=== PATIENT | female | born 1940 | race Caucasian/White ===

== ENCOUNTER 2020-08-23 10:58 | Emergency (ER) | payer OTHER ==
[~2020-08-23] VITALS: Ht 167.6 cm; Wt 64.9 kg
[~2020-08-23 10:58] MED LIST: ACID REDUCER 1150 MG PO; BISA5EC PO; Cyclobenzaprine5 MG PO; ENOX40I SC; HYDMOR2 PO; IBUP400 PO; IBUP600 PO; ONDA4ODT SL; PANT40 PO; Stool Softener100 MG PO; TRAM50 PO
[2020-08-23] MEDS ORDERED: ACET325 (11:24)
[2020-08-23 11:32] LABS: BASOPHILS ABSOLUTE AUTO 0.02 K/mm3 (0.00-0.23); BASOPHILS PERCENT AUTO 0 % (0-2); EOSINOPHILS ABSOLUTE AUTO 0.04 K/mm3 (0.00-0.68); EOSINOPHILS PERCENT AUTO 1 % (0-6); Hematocrit 39.5 % (33.0-51.0); Hemoglobin 12.3 g/dL (11.5-16.0); IMMATURE GRAN ABSOLUTE AUTO 0.02 K/mm3 (0.00-0.10); IMMATURE GRAN PERCENT AUTO 0 % (0-1); LYMPHOCYTES ABSOLUTE AUTO 1.79 K/mm3 (0.84-5.20); LYMPHOCYTES PERCENT AUTO 27 % (21-46); MONOCYTES ABSOLUTE AUTO 0.47 K/mm3 (0.16-1.47); MONOCYTES PERCENT AUTO 7 % (4-13); Mean Corpuscular HGB 30.2 pg (26.0-34.0); Mean Corpuscular HGB Conc 31.1 g/dL (31.5-36.5); Mean Corpuscular Volume 97 fL (80-100); Mean Platelet Volume 9.3 fL (9.1-12.4); NEUTROPHILS ABSOLUTE AUTO 4.33 K/mm3 (1.96-9.15); NEUTROPHILS PERCENT AUTO 65 % (41-73); Platelet Count 247 K/mm3 (150-400); RDW Coefficient Variation 12.4 % (11.7-14.2); RDW Standard Deviation 44.2 fL (35.1-46.3); Red Blood Cell Count 4.07 M/mm3 (3.80-5.20); White Blood Cell Count 6.67 K/mm3 (4.00-11.30)
[2020-08-23 11:47] LABS: Alanine Aminotransfer (ALT/SGP 14 U/L (12-78); Albumin, Blood 3.3 g/dL (3.4-5.0); Albumin/Globulin Ratio 1.1 (0.8-1.8); Alk Phos 77 U/L (50-136); Anion Gap 7 mmol/L (6-16); Aspartate Aminotrans (AST/SGOT 12 U/L (12-37); Bilirubin, Total 0.5 mg/dL (0.1-1.0); Blood Urea Nitrogen 21 mg/dL (8-24); Bun/Creatinine Ratio 24.2 (12.0-20.0); CO2, Blood 27 mmol/L (21-32); Calcium, Blood 8.7 mg/dL (8.5-10.1); Chloride, Blood 108 mmol/L (98-108); Creatinine, Blood 0.87 mg/dL (0.40-1.00); Globulin, Blood 3.1 g/dL (2.2-4.0); Glomerular Filtration Rate >60 (60-); Glucose, Blood 160 mg/dL (70-99); Potassium, Blood 3.9 mmol/L (3.5-5.5); Sodium, Blood 142 mmol/L (136-145); Total Protein, Blood 6.4 g/dL (6.4-8.2); Troponin I <0.015 ng/mL (0.000-0.040)
== END 2020-08-23 12:52 | disposition home or self-care (01) ==
LOC: ER 10:58
PROVIDERS: Emergency Medicine
DX: R55 Syncope and collapse (principal); Z88.5 Allergy status to narcotic agent; Z88.2 Allergy status to sulfonamides; Z87.891 Personal history of nicotine dependence; Z79.899 Other long term (current) drug therapy
CPT/HCPCS: 71045; 80053; 84484; 85025; 93005; 93010; 99285-25

== ENCOUNTER → 2022-07-28 | Outpatient (CLI) | payer OTHER ==
[~2022-07-28] MED LIST changes: +ACET325
[2022-07-30 10:19] LABS: Stool Occult Bld Immuno 1 Negative (NEGATIVE)
== END | disposition home or self-care (01) ==
LOC: LAB SHORT 19:00 → LAB 19:00
PROVIDERS: Hospitalist
DX: Z12.11 Encounter for screening for malignant neoplasm of colon (principal)
CPT/HCPCS: 82274

== ENCOUNTER 2024-08-11 06:03 | Day surgery (SDC) | payer OTHER ==
[~2024-08-11] VITALS: Ht 160 cm; Wt 71.9 kg
[2024-08-11] VITALS (20 sets, daily range): BP systolic 105–156; BP diastolic 56–87
[~2024-08-11 06:03] MED LIST changes: +ACET500 PO
[2024-08-11] MEDS ORDERED: Chlorhexidine Mouth Care 15 ML UDC MT SCH (06:15)
[2024-08-11] MEDS ORDERED: Acetaminophen 500 MG Tab PO SCH ×2 (06:15→16:00)
[2024-08-11] MEDS ORDERED: Lactated Ringer's 1,000 ML IV SCH ×2 (06:15→07:40)
[2024-08-11] MEDS ORDERED: Tranexamic Acid 100 ML IV SCH (06:15)
[2024-08-11] MEDS ORDERED: CeFAZolin Sodium 2,000 MG in NS 100 ML IV SCH ×2 (06:15→16:00)
[2024-08-11] MEDS ORDERED: Ropivacaine 0.5% HCl/Pf 123.125 MG,EPINEPHrine HCL 0.25 MG,Ketorolac Tromethamine 15 MG... INFIL SCH (06:15)
[2024-08-11] MEDS ORDERED: Vancomycin HCL 1,000 MG in NS 250 ML IV SCH ×2 (06:15→19:00)
[2024-08-11] MEDS ORDERED: OTC SLEEP AID PO (06:25)
[2024-08-11] MEDS ORDERED: propofoL 100 ML IV ONE (06:52)
[2024-08-11] MEDS ORDERED: CeFAZolin Sodium 2,000 MG VIAL ONE (06:55)
--- NOTE | 2024-08-11 07:13 | NUR ---
Ambulatory in Day Surgery with cane. History, Chart, Medications and Allergies reviewed before start of procedure. Pre-Op teaching done. Pt verbalizes understanding.
[2024-08-11] MEDS ORDERED: Morphine Sulfate 4 MG/1 ML Injection IV PRN (07:40)
[2024-08-11] MEDS ORDERED: Metoclopramide HCl 5MG / ML 2ML Vial IV PRN (07:40)
[2024-08-11] MEDS ORDERED: Magnesium Hydroxide Conc 10 ML UDC PO PRN (07:40)
[2024-08-11] MEDS ORDERED: Ondansetron HCl 2 MG / ML 2ML Vial IV PRN (07:40)
[2024-08-11] MEDS ORDERED: Bisacodyl 10 MG Supp PR PRN (07:45)
[2024-08-11] MEDS ORDERED: Prochlorperazine Edisylate 10 mg Vial IV PRN (07:45)
[2024-08-11] MEDS ORDERED: Promethazine HCl 25 MG Tab PO PRN (07:45)
[2024-08-11] MEDS ORDERED: FLU VACC TS2024-25(6MOS UP)/PF 45 MCG/0.5 ML SYRINGE IM SCH (07:45)
[2024-08-11] MEDS ORDERED: DiphenhydrAMINE HCL 25 MG Cap PO PRN (07:45)
[2024-08-11] MEDS ORDERED: Phenylephrine HCl 10mg/ml 1 ml Vial ONE ×2 (08:13→08:18)
[2024-08-11] MEDS ORDERED: ePHEDrine Sulfate 50 MG/ML 1ML Injection ONE (08:14)
--- NOTE | 2024-08-11 08:44 | NUR ---
08/11/24 0844 AlexysShanda SPINAL BLOCK COMPLETED BY UPON ENTRY TO OR. PATIENT TOLERATED WELL.
[2024-08-11] MEDS ORDERED: Ondansetron HCl 2 MG / ML 2ML Vial ONE (09:44)
[2024-08-11] MEDS ORDERED: Ketorolac Tromethamine 30mg Vial ONE (10:22)
--- NOTE | 2024-08-11 11:11 | NUR ---
PT ARRIVED TO THE ROOM FROM PACU AT APPROXIMATELY 1050. PT DENIES PAIN. SHE IS DROWSY BUT WAKES WHEN SPOKEN TO. VSS. SPINAL SITE WNL. FAMILY AT BEDSIDE FOR SUPPORT.
[2024-08-11] MEDS ORDERED: Ketorolac Tromethamine 15mg Vial IV SCH (12:00)
[2024-08-11] MEDS ORDERED: NS 250 ML IV PRN (15:45)
--- NOTE | 2024-08-11 16:36 | NUR ---
SHIFT SUMMARY PT IS POD#0 FROM [facility] WITH DR. LEVI. PT IS A 1 ASSIST WHEN OOB. SHE HAS WORKED WITH THERAPY. PAIN MANAGED WITH TYLENOL AT THIS TIME. PT HAS VOIDED. SHE IS TOLERATING PO. SHE USES HER CALL LIGHT APPROPRIATELY.
[2024-08-11] MEDS ORDERED: Docusate Sodium 100 MG Cap PO SCH (21:00)
--- NOTE | 2024-08-12 02:33 | NUR ---
ASSUMED CARE OF PT @2200.PT C/O INCREASED PAIN WITH SPASMS.MED IV FOR PAIN PT DOES NOT HAVE PO NARCOTIC PAIN MEDS AVAILABLE AND MEETS CRITERIA FOR USE.
[2024-08-12 02:38] VITALS: BP 131/69
[2024-08-12 04:56] LABS: BASOPHILS ABSOLUTE AUTO 0.01 K/mm3 (0.00-0.23); BASOPHILS PERCENT AUTO 0 % (0-2); EOSINOPHILS PERCENT AUTO 0 % (0-6); Hematocrit 33.2 % (33.0-51.0); Hemoglobin 10.8 g/dL (11.5-16.0); IMMATURE GRAN ABSOLUTE AUTO 0.05 K/mm3 (0.00-0.10); IMMATURE GRAN PERCENT AUTO 0 % (0-1); LYMPHOCYTES ABSOLUTE AUTO 0.85 K/mm3 (0.84-5.20); LYMPHOCYTES PERCENT AUTO 7 % (21-46); MONOCYTES PERCENT AUTO 11 % (4-13); Mean Corpuscular HGB 30.7 pg (26.0-34.0); Mean Corpuscular HGB Conc 32.5 g/dL (31.5-36.5); Mean Corpuscular Volume 94 fL (80-100); Mean Platelet Volume 9.3 fL (9.1-12.4); NEUTROPHILS ABSOLUTE AUTO 10.76 K/mm3 (1.96-9.15); NEUTROPHILS PERCENT AUTO 82 % (41-73); Platelet Count 256 K/mm3 (150-400); RDW Coefficient Variation 12.6 % (11.7-14.2); RDW Standard Deviation 43.7 fL (35.1-46.3); Red Blood Cell Count 3.52 M/mm3 (3.80-5.20); White Blood Cell Count 13.07 K/mm3 (4.00-11.30)
[2024-08-12 05:25] LABS: Bun/Creatinine Ratio 25.4 (12.0-20.0); Calcium, Blood 8.9 mg/dL (8.5-10.1); Creatinine, Blood 0.91 mg/dL (0.40-1.00); Magnesium, Blood 1.7 mg/dL (1.6-2.4); Potassium, Blood 4.3 mmol/L (3.5-5.5)
[2024-08-12 06:45] VITALS: BP 116/61
[2024-08-12] MEDS ORDERED: ASPI81CH PO (08:26)
[2024-08-12] MEDS ORDERED: LINE600 PO (08:27)
[2024-08-12] MEDS ORDERED: Linezolid 600 MG Tab PO SCH (09:00)
[2024-08-12] MEDS ORDERED: Aspirin 81 MG Chew PO SCH (09:00)
[2024-08-12 11:12] VITALS: BP 112/61
--- NOTE | 2024-08-12 12:27 | NUR ---
DISCHARGE PT PROVIDED WITH WRITTEN AND VERBAL DISCHARGE INSTRUCTIONS, SHE VERBALIZED UNDERSTANDING. CLEAN DRESSINGS PROVIDED. PT MET ALL GOALS PRIOR TO DISCHARGE. REPORT GIVEN TO PAT RN.
== END 2024-08-12 12:21 | disposition home or self-care (01) ==
LOC: ORSCMMR 06:03 → ORD 07:30 → SURS 10:43 → ORSCMMR 08-12 12:21
PROVIDERS: Orthopaedic Surgery
PROC: 0SR90JA Replacement of Right Hip Joint with Synthetic Substitute, Uncemented, Open Approach (ICD-10-PCS; principal; 2024-08-11 07:30)
DX: M16.11 Unilateral primary osteoarthritis, right hip (principal); I48.91 Unspecified atrial fibrillation; Z87.891 Personal history of nicotine dependence; Z96.652 Presence of left artificial knee joint
CPT/HCPCS: 36415; 72170; 80048; 83735; 85025; 97110; 97116; 97162; 97165; 97530; 97535; A9270; C1713; C1776; J0171; J0690; J0735; J1885; J2270; J2371; J2405; J2704; J2795; J3370; J7050; J7120

== ENCOUNTER → 2024-09-28 | Outpatient (CLI) | payer OTHER ==
[~2024-09-28] MED LIST changes: +ASPI81CH PO; +LINE600 PO; +OTC SLEEP AID PO
[2024-09-28 15:31] LABS: Source, Urine Clean Catch
[2024-09-28 17:26] LABS: Appearance, Urine Cloudy (Clear); Bilirubin, Urine Neg (Neg); Blood, Urine 5+ (Neg); Color, Urine Yellow (P-Yellow); Glucose Qualitative, Urine Neg (Neg); Ketones, Urine Neg (Neg); Leukocyte Esterase, Urine 3+ (Neg); Nitrite, Urine Pos (Neg); Protein, Urine 3+ (Neg); Urobilinogen, Urine NORM (Normal)
[2024-09-28 17:36] LABS: Bacteria Many /hpf; Squamous Epithelial Cells Few /hpf (Few); White Blood Cells, Urine TNTC /hpf (0-5)
== END | disposition home or self-care (01) ==
LOC: LAB 15:28 → LAB SHORT 15:28
PROVIDERS: Hospitalist
DX: N39.0 Urinary tract infection, site not specified (principal)
CPT/HCPCS: 81001; 87077; 87086; 87186

== ENCOUNTER → 2025-01-31 | Outpatient (CLI) | payer OTHER ==
[2025-01-31 15:02] LABS: Source, Urine Clean Catch
[2025-01-31 17:27] LABS: Appearance, Urine Hazy (Clear); Bilirubin, Urine Neg (Neg); Blood, Urine 5+ (Neg); Glucose Qualitative, Urine Neg (Neg); Ketones, Urine Neg (Neg); Leukocyte Esterase, Urine 3+ (Neg); Nitrite, Urine Pos (Neg); Protein, Urine 1+ (Neg); Specific Gravity, Urine 1.005 (1.003-1.022); Urobilinogen, Urine NORM (Normal)
[2025-01-31 17:40] LABS: Color, Urine Pale Yellow (P-Yellow)
[2025-01-31 17:41] LABS: White Blood Cells, Urine TNTC /hpf (0-5)
[2025-01-31 17:42] LABS: Bacteria Many /hpf; Squamous Epithelial Cells Rare /hpf (Few)
== END | disposition home or self-care (01) ==
LOC: LAB 15:01 → LAB SHORT 15:01
PROVIDERS: Hospitalist
DX: R39.9 Unspecified symptoms and signs involving the genitourinary system (principal)
CPT/HCPCS: 81001; 87077; 87086; 87186

== ENCOUNTER → 2025-04-23 | Outpatient (CLI) | payer OTHER | LOC: LAB 09:44 → LAB SHORT 09:44 | DX: N39.0 Urinary tract infection, site not specified (principal) | CPT/HCPCS: 87077; 87086; 87186 ==